=== PATIENT | male | born 1995 | race Caucasian/White ===

== ENCOUNTER 2016-11-30 07:49 | Emergency (ER) | payer OTHER ==
[~2016-11-30] VITALS: Wt 96.0 kg
--- NOTE | 2016-11-30 09:18 | RADRPT ---
PROCEDURE: XR Foot. CLINICAL INDICATION: Left foot pain. TECHNIQUE: AP, oblique, and lateral views of the left foot are available for review. COMPARISON: None available FINDINGS: There is a nondisplaced fracture at the base of the fifth metatarsal. The remainder of the bones th e foot appear intact. No other fractures or dislocations are identified. Soft tissues are unremark able without swelling or foreign body. . IMPRESSION: Nondisplaced fracture at the base of the fifth metatarsal. RPTAT: GG .Neel Ibarra MD, MD Date Time Electronically viewed and signed by .Neel Ibarra MD, MD on 11/30/2016 09:17 .L/
[2016-11-30] MEDS ORDERED: NAPR-260 PO (09:44)
--- NOTE | 2016-11-30 12:22 | ERD ---
DATE OF SERVICE: HISTORY OF PRESENT ILLNESS: The patient is a 20-year-old male coming in complaining of pain to his lateral left foot. The patient states that it started 2 days ago when he twisted his ankle and fell . He is not taking medications for his symptoms. His pain is worse with ambulation. He has some m ild numbness to the lateral aspect of the foot, but is able to move his toes without difficulty. PAST MEDICAL HISTORY: Denies. ALLERGIES: DENIES. PAST SURGICAL HISTORY: Appendectomy and hernia repair. SOCIAL HISTORY: Occasionally smokes marijuana. REVIEW OF SYSTEMS: A 12-point review of systems was done. Refer to HPI for positives, all other sy stems negative. PHYSICAL EXAMINATION: VITAL SIGNS: Temperature is 98.8, pulse 81, blood pressure is 154/88, respiratory 18, O2 saturation 97% on room air. Pain intensity 8/10. GENERAL: The patient is well-appearing, well-nourished, no acute distress. HEART: Regular rate and rhythm. No murmurs, clicks, rubs or gallops. No S3 or S4. CHEST: Clear to auscultation bilaterally. There are no rales, wheezes or rhonchi. EXTREMITIES: Equal pulses bilaterally. There is no peripheral clubbing, cyanosis, or edema. No foca l swelling or erythema. Full range of motion. Grossly neurovascularly intact. The patient has tende rness to palpation on the lateral aspect of the left foot. There is no tenderness to palpation over the ankle. Compartments are soft, pulses are intact. The patient is neurovascularly intact to the distal foot. Cap refill is less than 2 seconds. SKIN: There is some ecchymosis noted to the lateral aspect of the foot. EMERGENCY ROOM COURSE: The patient had a 3-view x-ray done of the left foot which showed a nondispl aced fracture of the base of the 5th metatarsal. The patient was put in a stirrup splint and given crutches. DIAGNOSIS: Foot fracture. MEDICAL DECISION MAKING: I have low suspicion for compartment syndrome, low suspicion for tendon or ligament rupture, low suspicion for neurovascular deficit. The patient's exam was concerning for f racture which was confirmed on x-ray. The patient will be told to follow up with ortho for casting. DISCHARGE: The patient is discharged stable. The patient is given prescription for naproxen for pa in. The patient was told if symptoms progress or worsen, to return to the ER, and otherwise, recomm ended to follow up with orthopedics. All other questions answered at time of discharge. Discharge summary given at the time of departure. The patient understood and complied with plan. Dictated By: CT VIEIRA/RJ Conf#: [id number] DID#: [id number]
== END 2016-11-30 09:59 | disposition home or self-care (01) ==
LOC: FTE 07:49
DX: S92.355A Nondisplaced fracture of fifth metatarsal bone, left foot, initial encounter for closed fracture (principal); W18.39XA Other fall on same level, initial encounter; Y92.9 Unspecified place or not applicable
CPT/HCPCS: 29515; 73630; Z7502

== ENCOUNTER 2018-10-22 14:05 | Emergency (ER) | payer OTHER ==
[~2018-10-22] VITALS: Wt 96.5 kg
[~2018-10-22 14:05] MED LIST: NAPR-985 PO
[2018-10-22 14:07] VITALS: BP 140/78; PULSE 98; RESP 18
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
[2018-10-22] MEDS ORDERED: ACET325T33 PO (16:03)
[2018-10-22] MEDS ORDERED: IBUP-1561 PO (16:03)
== END 2018-10-22 16:28 | disposition home or self-care (01) ==
LOC: FTE 14:05
DX: S29.011A Strain of muscle and tendon of front wall of thorax, initial encounter (principal); V89.2XXA Person injured in unspecified motor-vehicle accident, traffic, initial encounter
CPT/HCPCS: 71100; Z7502; 99283